=== PATIENT | male | born 1955 | race Caucasian/White ===

== ENCOUNTER → 2017-12-07 | Outpatient (CLI) | END | disposition home or self-care (01) ==

== ENCOUNTER → 2017-12-10 | Outpatient (CLI) | END | disposition home or self-care (01) ==

== ENCOUNTER 2017-12-15 10:45 | Day surgery (SDC) | END 2017-12-15 15:16 | disposition home or self-care (01) ==

== ENCOUNTER → 2018-02-23 | Outpatient (CLI) | END | disposition home or self-care (01) ==